=== PATIENT | female | born 1965 | race Caucasian/White ===

== ENCOUNTER → 2016-09-24 | Outpatient (CLI) | payer BC ==
[~2016-09-24] MED LIST: ACET-1175 PO; CALC-51 PO; CHOL100010 PO; MISCCAP80 PO; MULTTAB58 PO; [UNRECOGNIZED DRUG - OTHER] PO
== END | disposition home or self-care (01) ==
LOC: C.PAPS 11:22
PROVIDERS: ATTEND Obstetrics & Gynecology
DX: Z01.419 Encounter for gynecological examination (general) (routine) without abnormal findings (principal); R87.610 Atypical squamous cells of undetermined significance on cytologic smear of cervix (ASC-US)

== ENCOUNTER → 2016-11-18 | Outpatient (CLI) | payer BC | END | disposition home or self-care (01) | LOC: C.LABSPEC 17:44 | PROVIDERS: ATTEND Nurse Practitioner Adult Health | DX: L72.3 Sebaceous cyst (principal) ==

== ENCOUNTER → 2016-12-15 | Outpatient (CLI) | payer BC | END | disposition home or self-care (01) | LOC: C.PATHSPEC 17:17 | PROVIDERS: ATTEND Surgery | DX: L72.0 Epidermal cyst (principal) ==

== ENCOUNTER → 2017-05-31 | Outpatient (CLI) | payer BC ==
[2016-05-11 14:28] VITALS: BP 122/74; PULSE 84
[2017-05-31 13:32] VITALS: BP 118/74; PULSE 94; TEMP 37; O2SAT 96
--- NOTE | 2017-05-31 16:46 | Radiation Oncology Follow-Up ---
Radiation Oncology Follow-Up Date of Visit May 31, 2017. Reason For Visit Annual follow-up Radiation Completion Date 08/13/13 Diagnosis (1) Breast cancer Status: Resolved Onset Date: 03/19/2013 Stage: l (A) Permanent Comment: Self detected left breast mass Biopsy-positive for infiltrating lobular carcinoma Identification of additional lesion Status post partial mastectomy and sentinel lymph node biopsy Stage [id number] Estrogen receptor positive, progesterone receptor positive, HER-2/luciano negative Oncotype DX score 14 Status post completion of radiation therapy 08/13/2013 received 6120 cGy Last Edited By: Ruth Ferreira on May 15, 2015 14:07 History of Present Illness Ms. Matthews is a 51-year-old female who was found to have abnormal breast mass at the time of her routine examination with her family physician. He noted 2 left breast masses that she could palpate when pointed out. She was seen on February 14 for a fine needle aspiration. She had undergone a mammogram on February 08 with a new palpable nodule in the lower outer quadrant of the left breast. Examination confirmed a firm palpable nodule but no corresponding mammographic abnormality was present. Targeted ultrasound demonstrated a vague area of shadowing without definitive associated mass at the 4 o'clock position (N+5). Left breast physical exam also revealed an additional palpable periareolar nodule at 3 o'clock. Again no corresponding mammographic abnormality was present. Targeted ultrasound revealed a 1.3 x 1.1 cm hypoechoic mass with indistinct margins at 3 o'clock (N+2). Suspicious and the FNA was therefore ordered. The FNA of the left 3 o'clock periareolar lesion was nondiagnostic, case [id number]. Aspiration of the left 4 o'clock palpable mass showed cystic changes and proliferative breast disease but no neoplasm seen, case [id number]. On February 27 patient underwent multiple ultrasound-guided biopsies of the left breast with marking devices inserted and post digital mammographic imaging performed. The first biopsy was of an ultrasound-guided 1 cm irregular shaped mass located in the left breast at the 3 o'clock anterior depth. The second biopsy was of a 1.5 x 1.1 cm irregular shaped mass located in the left breast at the 4 o'clock posterior depth position. The biopsy of the 3 o'clock mass revealed an infiltrating lobular carcinoma, classic type, grade 1/3 with no DCIS but LCIS present. No lymphovascular invasion or perineural invasion was identified. Estrogen receptors and progesterone receptors were positive. HER-2/luciano was negative. The 4 o'clock tumor was also biopsied revealing an infiltrating lobular carcinoma, classic type, grade 1/3 with no DCIS but LCIS present. No lymphovascular or perineural invasion was identified. Estrogen receptors and progesterone receptors were positive and HER-2/luciano was negative. Case [id number]. The 3 o'clock position was negative for HER-2/luciano by FISH. The patient was seen at [facility] by Dr. Shira Maciel for further evaluation and treatment recommendations. On March 08 patient underwent bilateral breast MRI. In the left breast an irregular mass with irregular margins and heterogeneous enhancement was seen at the 3 o'clock anterior depth position. This mass is located 1.5 cm from the nipple and consistent with previously biopsied mass. In addition an irregular mass with irregular margins was seen in the left breast lower outer quadrant at 4 o'clock at the posterior depth. This mass measures 1.7 x 1 cm and is thought to possibly to represent additional disease. An irregular mass with spiculated margins is seen in the left breast at the 6 o'clock posterior depth measuring 1.4 x 0.8 cm, that is seen on mammography. A few borderline enhanced lymph nodes are seen in the left axilla which are suspicious. No internal mammary adenopathy is seen. In the right breast an oval mass with irregular margins at the 3 o'clock anterior depth position is seen measuring 1.2 x 0.5 cm. No abnormal extramammary findings were appreciated. Repeat ultrasound on March 16, 2013 was performed. No sonographic correlate exists but the suspicious enhancing mass in the left breast at the 6 o'clock radiant. Based on these studies an MRI biopsy was recommended. The slides from [facility] were reviewed at [facility] on March 19. Their diagnosis confirmed the previous findings of invasive lobular carcinoma, well-differentiated, with lobular carcinoma in situ. The cells were positive for ER and WI and negative for HER-2/luciano. The biopsy of the left 6 o'clock mass was performed on March 30. 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 The patient wished to proceed with breast conserving therapy despite the multiple lesions. Therefore on April 16, 2013 Dr. Maciel performed a sentinel lymph node biopsy, left breast excisional biopsy, and partial mastectomy. The left breast mastectomy specimen of the 3 o'clock position revealed an infiltrating lobular carcinoma, well differentiated, with no DCIS. The tumor measured 1.2 x 1.1 x 0.9 cm. The margins were uninvolved by invasive carcinoma. Three sentinel nodes were identified without tumor cells. One contained isolated tumor cells. 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 The invasive carcinoma was within less than a millimeter from the inferior margin. Additional margins were taken and were negative. Foci of invasive cancer were noted counting 6. The margin there were multifocal invasive lobular carcinoma on the inferior margin. Because of this Dr. Maciel discussed reexcision versus mastectomy. The patient wished to proceed with reexcision. The tissue was sent for Oncotype DX evaluation. The recurrent score was 14 translating into an average rate of distant recurrence of 9%. This places her in the low risk category. On May 11, 2013 the patient underwent reexcision creating a new inferior margin. This reexcision showed no residual invasive or in situ carcinoma identified. Final staging is [id number] (i +), ER positive, WI positive, HER-2/luciano negative. She underwent conventional radiation therapy was treated from 07/09/2013 to . She received 6120 cGy. Interim History She's been doing well over this past year. She has noted no changes to her breast. She's noted no masses or tenderness and no change in the axilla. She has no swelling of her arm. She is up to date on mammography. She stated she had a cyst on her back excised. This was benign. She has recheck visits and mammography in [place]. She previously was offered antiestrogen therapy by her breast surgeon and declined treatment. Allergies Coded Allergies: No Known Allergies (Unverified , 04/20/13) Home Medications Scheduled Acetaminophen (Tylenol), 325 MG PO DIRECTED Cholecalciferol (Vitamin D), 1,000 INTER.UNIT PO DAILY Multiple Vitamin (Multivitamin), 1 TAB PO DAILY Probiotic Product (Probiotic), PO DAILY [Calcium], 1 TAB PO DAILY Review of Systems Gastrointestinal: Symptoms: WNL Oral: Symptoms: No Problems Respiratory: Symptoms: WNL Urinary: Symptoms: WNL Skin: Symptoms: No Problems Other Skin Symptoms: disconfort left breast incision area and above incision area x3-4 months Breast: Right Upper Arm Measurement: 29.5 Right Mid Arm Measurement: 24.4 Right Wrist Measurement: 16.9 Left Upper Arm Measurement: 30.1 Left Mid Arm Measurement: 23.8 Left Wrist Measurement: 16.4 Arm Dominence: Right Patient Cosmetic Evaluation: Fair Staff Cosmetic Evalaluation: Fair Physical Exam Vital Signs Date Time Temp Pulse Resp B/P (MAP) Pulse Ox O2 Delivery O2 Flow Rate FiO2 05/31/17 13:32 37.0 94 16 118/74 96 Pain: Pain Location: None Patient Pain Scale: 0 - 10 Initial Pain Intensity: 0.0 Fatigue: None General Appearance: no apparent distress Eyes: normal inspection, EOMI ENT: normal ENT inspection, hearing grossly normal Neck: no adenopathy, thyroid normal Respiratory/Chest: lungs clear, no respiratory distress, no accessory muscle use Breast: Breast examination reveals well-healed incisions of the left breast. There are no masses or tenderness and no axillary adenopathy. She has mild deficit noted in the area of the breast incision. There is slight telangiectasia. There are no distinct masses. Using the Pitts score cosmesis she has a good outcome. The right breast showed no masses or tenderness and no axillary adenopathy. Cardiovascular: regular rate, rhythm, no gallop, no murmur Extremities: no pedal edema Neurologic/Psychiatric: no motor/sensory deficits, alert, normal mood/affect Skin: warm/dry Lymphatic: no adenopathy Additional Studies She had a mammogram 01/04/2017. There is no mammographic evidence of malignancy. Routine follow-up in 1 year is recommended. BI-RADS Category 2. Assessment & Plan Plan: Continue with scheduled mammography and follow-up visits with her breast surgeon. Continue regular follow-up with her primary care physician. A follow- up plan with our office was not given. She may call if she has any questions or concerns will be happy to see her. Total Time In Follow-Up I spent 20 minutes speaking to the patient and performing examination. I spent 15 minutes reviewing information in completing this note. AK Copy To RV. Mcghee MD; Shira Maciel M.D.
== END | disposition home or self-care (01) ==
LOC: C.ONC 13:24
PROVIDERS: ATTEND Physician Assistant Medical
DX: Z08 Encounter for follow-up examination after completed treatment for malignant neoplasm (principal); Z92.3 Personal history of irradiation; Z85.3 Personal history of malignant neoplasm of breast

== ENCOUNTER → 2017-12-14 | Outpatient (CLI) | payer BC ==
[~2017-12-14] MED LIST changes: -[UNRECOGNIZED DRUG - OTHER] PO
== END | disposition home or self-care (01) ==
LOC: C.PAPS 11:08
PROVIDERS: ATTEND Obstetrics & Gynecology
DX: Z01.419 Encounter for gynecological examination (general) (routine) without abnormal findings (principal); R87.610 Atypical squamous cells of undetermined significance on cytologic smear of cervix (ASC-US)

== ENCOUNTER → 2018-04-12 | Outpatient (CLI) | payer BC ==
--- NOTE | 2018-04-12 14:19 | DIAGNOSTIC IMAGING REPORT ---
R SHOULDER MIN 2 VIEWS ROUTINE CLINICAL HISTORY: Right shoulder pain. COMPARISON: None FINDINGS: Alignment of the right shoulder is anatomic. No fracture or suspicious lesion is present. There is moderate arthritis of the right acromioclavicular joint and mild osteoarthritis of the right glenohumeral joint. IMPRESSION: 1. No acute fracture or dislocation of the right shoulder. 2. Moderate osteoarthritis of the right acromioclavicular joint and mild osteoarthritis of the glenohumeral joint. Electronically signed by: Dann Cerrato M.D. 04/12/2018 12:50 PM Dictated Date/Time: 04/12/2018 12:49 PM
== END | disposition home or self-care (01) ==
LOC: C.RAD1850 11:26
PROVIDERS: ATTEND Internal Medicine
DX: M25.511 Pain in right shoulder (principal); M19.111 Post-traumatic osteoarthritis, right shoulder

== ENCOUNTER → 2018-04-17 | Outpatient (CLI) | payer BC ==
--- NOTE | 2018-04-17 15:54 | DIAGNOSTIC IMAGING REPORT ---
MRI OF THE RIGHT SHOULDER CLINICAL HISTORY: Right shoulder pain. COMPARISON STUDY: Radiographs of the right shoulder dated 04/12/2018. TECHNIQUE: MRI of the right shoulder was performed utilizing various T1 and T2 weighted sequences in the axial, sagittal, coronal planes. IV contrast was not administered for this examination. FINDINGS: Rotator cuff: There is tendinopathy of the supraspinatous tendon. There is a full thickness tear seen anteriorly at the leading edge on coronal image #8. The tear measures approximately 4 mm in length and 5 mm in AP diameter. No musculotendinous retraction is seen. There is mild tendinopathy of the infraspinatus tendon. Infraspinatus appears intact. The teres minor and subscapularis tendons are preserved. There is subacromial and subdeltoid bursal fluid. The acromioclavicular joint is intact noting productive degenerative change. Biceps tendon: The long head of the biceps tendon is normal in signal intensity and located within the bicipital groove. The anchor is maintained. Labrum: There is mild irregularity of the superior labrum which may represent tearing. Shoulder joint: There is no joint effusion. The articular cartilage over the glenoid is maintained. There is no MRI evidence of fracture. Mild degenerative change and a subchondral cyst are noted in the greater tuberosity of the humeral head. Musculature and soft tissues: The musculature of the shoulder is normal in bulk and signal intensity. No atrophy is seen. IMPRESSION: 1. There is tendinopathy of the supraspinatus tendon, with a full-thickness tear identified anteriorly at the leading edge. 2. There is no musculotendinous retraction or muscular atrophy. 3. The rotator cuff is otherwise intact. 4. Irregularity along the superior labrum may represent mild tearing. 5. Mild arthritic change is present in the greater tuberosity of the humeral head. Electronically signed by: Vinicius Cardona M.D. 04/17/2018 3:52 PM Dictated Date/Time: 04/17/2018 3:47 PM
== END | disposition home or self-care (01) ==
LOC: C.MRIBC 14:52
PROVIDERS: ATTEND Internal Medicine
DX: M19.011 Primary osteoarthritis, right shoulder (principal); R29.898 Other symptoms and signs involving the musculoskeletal system